=== PATIENT | male | born 1940 | race Caucasian/White ===

== ENCOUNTER 2016-10-23 21:42 | Emergency (ER) | payer MEDICARE, OTHER ==
[2016-10-23] MEDS ORDERED: Furosemide 40 MG/4 ML VIAL IVPUSH ONE (21:54)
--- NOTE | 2016-10-23 22:04 | EDM.PDOC ---
ED HPI GENERAL MEDICAL PROBLEM - General Chief Complaint: Respiratory Problem Stated Complaint: TYRON, [id number] Time Seen by Provider: 10/23/16 21:55 Source of Information: Reports: Patient History Limitations: Reports: No Limitations - History of Present Illness INITIAL COMMENTS - FREE TEXT/NARRATIVE: c/o SOB since yesterday. Hx CHF. Denies COPD though has an inhaler, Hasn't used until today. Hx Cardiac bypass surgery 2 years ago. Blood clot in left leg one year ago. xarelto stopped 2 months ago by business planning analyst, unsure why. No bleeding hx. Nonproductive cough . Non smoker. Traveled from [place] via car. No leg pain , Usual swelling to left leg. mild swelling to RLE. Duration: Day(s): (yesterday) Associated Symptoms: Reports: Shortness of Breath. Denies: Chest Pain, Cough ( ocassional), Fever/Chills, Nausea/Vomiting - Related Data Allergies Allergy/AdvReac Type Severity Reaction Status Date / Time Sulfa (Sulfonamide Allergy Hives Verified 10/23/16 21:51 Antibiotics) Home Meds: Home Meds Albuterol Sulfate [Ventolin Hfa] 8 gm IH ASDIRECTED 10/23/16 [History] Aspirin [Lon Chewable] 81 mg PO DAILY 10/23/16 [History] Atenolol 25 mg PO DAILY 10/23/16 [History] Cholecalciferol (Vitamin D3) [Vitamin D3] 1,000 unit PO DAILY 10/23/16 [History] Furosemide [Lasix] 20 mg PO DAILY 10/23/16 [History] Isosorbide Mononitrate [Isosorbide Mononitrate ER] 30 mg PO DAILY 10/23/16 [ History] Melatonin 5 mg PO ASDIRECTED 10/23/16 [History] Nitroglycerin [Nitrostat] 0.4 mg SL Q5M 10/23/16 [History] Potassium Gluconate 595 mg PO DAILY 10/23/16 [History] Tamsulosin [Flomax] 0.8 mg PO DAILY 10/23/16 [History] atorvaSTATin [Lipitor] 40 mg PO BEDTIME 10/23/16 [History] Past Medical History HEENT History: Reports: Hard of Hearing Cardiovascular History: Reports: Bypass, Heart Failure, High Cholesterol Respiratory History: Reports: None Gastrointestinal History: Reports: None Genitourinary History: Reports: None Musculoskeletal History: Reports: None Neurological History: Reports: None Psychiatric History: Reports: None Endocrine/Metabolic History: Reports: None Hematologic History: Reports: None Immunologic History: Reports: None Oncologic (Cancer) History: Reports: None Social & Family History - Tobacco Use Smoking Status *Q: Never Smoker - Recreational Drug Use Recreational Drug Use: No ED ROS GENERAL - Review of Systems Review Of Systems: See Below Constitutional: Reports: No Symptoms HEENT: Reports: No Symptoms, Hearing Loss Respiratory: Reports: Shortness of Breath, Cough. Denies: Pleuritic Chest Pain , Sputum Cardiovascular: Reports: Dyspnea on Exertion, Edema (greater left), Orthopnea. Denies: Chest Pain, Lightheadedness, Palpitations GI/Abdominal: Reports: No Symptoms Musculoskeletal: Reports: No Symptoms Skin: Reports: No Symptoms Neurological: Reports: No Symptoms ED EXAM, GENERAL - Physical Exam Exam: See Below Exam Limited By: No Limitations General Appearance: Alert, Mild Distress Eye Exam: Bilateral Eye: EOMI Ears: Normal External Exam, Normal TMs Nose: Normal Inspection Throat/Mouth: Normal Inspection Head: Atraumatic, Normocephalic Neck: Normal Inspection, Full Range of Motion Respiratory/Chest: Decreased Breath Sounds, Crackles (intermittent bases with deep breathing.). No: Wheezing Cardiovascular: Normal Peripheral Pulses, Regular Rate, Rhythm (ocassional PVC unifocal) GI/Abdominal: Normal Bowel Sounds, Soft, Non-Tender Extremities: Normal Range of Motion, Other (swelling left lower extremitiy. ). No: Barrera's Sign Skin Exam: Warm, Dry, Intact, Normal Color Course - Vital Signs Last Recorded V/S: Last Vital Signs Temp 97.1 F 10/23/16 23:48 Pulse 79 10/23/16 23:48 Resp 14 10/23/16 23:48 BP 125/64 10/23/16 23:48 Pulse Ox 97 10/23/16 23:48 - Orders/Labs/Meds Orders: Active Orders 24 hr Category Date Time Status EKG 12 Lead [EKG Documentation Completion] [RC] URGENT Care 10/23/16 21:52 Active RT Aerosol Therapy [RC] ASDIRECTED Care 10/23/16 22:21 Active Labs: Laboratory Tests 10/23/16 10/23/16 10/23/16 Range/Units 21:55 21:55 21:55 WBC 9.5 (5.0-10.0) 10^3/uL RBC 4.15 L (4.6-6.2) 10^6/uL Hgb 13.6 L (14.0-18.0) g/dL Hct 40.3 (40.0-54.0) % MCV 97.1 (80-100) fL MCH 32.8 (27.0-34.0) pg MCHC 33.7 (33.0-35.0) g/dL Plt Count 153 (150-450) 10^3/uL Neut % (Auto) 52.6 (42.2-75.2) % Lymph % (Auto) 36.2 (20.5-50.1) % Miner % (Auto) 10.1 H (2-8) % Eos % (Auto) 0.9 L (1.0-3.0) % Baso % (Auto) 0.2 (0.0-1.0) % PT 10.4 (9.0-12.0) SEC INR 1.0 (0.9-1.2) D-Dimer, Quantitative 2130 H (0-400) ng/mL Sodium 142 (135-145) mmol/L Potassium 3.9 (3.6-5.0) mmol/L Chloride 108 (101-111) mmol/L Carbon Dioxide 26.0 (21.0-31.0) mmol/L Anion Gap 11.9 BUN 14 (7-18) mg/dL Creatinine 1.0 (0.6-1.3) mg/dL Est Cr Clr Drug Dosing 55.83 mL/min Estimated GFR (MDRD) > 60 BUN/Creatinine Ratio 14.00 Glucose 126 H (74-105) mg/dL Lactic Acid (0.5-2.2) mmol/L Calcium 8.7 (8.4-10.2) mg/dl Total Bilirubin 0.5 (0.2-1.0) mg/dL AST 29 (10-42) IU/L ALT 27 (10-60) IU/L Alkaline Phosphatase 57 (42-121) IU/L CK-MB (CK-2) (0.4-4.7) ng/mL Troponin I < 0.02 (0.00-0.02) ng/ml B-Natriuretic Peptide 56 (0-100) pg/ml Total Protein 6.5 L (6.7-8.2) g/dl Albumin 3.5 (3.2-5.5) g/dl Globulin 3.0 Albumin/Globulin Ratio 1.17 10/23/16 10/23/16 Range/Units 21:55 22:50 WBC (5.0-10.0) 10^3/uL RBC (4.6-6.2) 10^6/uL Hgb (14.0-18.0) g/dL Hct (40.0-54.0) % MCV (80-100) fL MCH (27.0-34.0) pg MCHC (33.0-35.0) g/dL Plt Count (150-450) 10^3/uL Neut % (Auto) (42.2-75.2) % Lymph % (Auto) (20.5-50.1) % Miner % (Auto) (2-8) % Eos % (Auto) (1.0-3.0) % Baso % (Auto) (0.0-1.0) % PT (9.0-12.0) SEC INR (0.9-1.2) D-Dimer, Quantitative (0-400) ng/mL Sodium (135-145) mmol/L Potassium (3.6-5.0) mmol/L Chloride (101-111) mmol/L Carbon Dioxide (21.0-31.0) mmol/L Anion Gap BUN (7-18) mg/dL Creatinine (0.6-1.3) mg/dL Est Cr Clr Drug Dosing mL/min Estimated GFR (MDRD) BUN/Creatinine Ratio Glucose (74-105) mg/dL Lactic Acid 1.4 (0.5-2.2) mmol/L Calcium (8.4-10.2) mg/dl Total Bilirubin (0.2-1.0) mg/dL AST (10-42) IU/L ALT (10-60) IU/L Alkaline Phosphatase (42-121) IU/L CK-MB (CK-2) 3.60 (0.4-4.7) ng/mL Troponin I (0.00-0.02) ng/ml B-Natriuretic Peptide (0-100) pg/ml Total Protein (6.7-8.2) g/dl Albumin (3.2-5.5) g/dl Globulin Albumin/Globulin Ratio Meds: Medications Discontinued Medications Generic Name Dose Route Start Last Admin Trade Name Imani PRN Reason Stop Dose Admin Albuterol 2.5 mg 10/23/16 22:21 10/23/16 22:35 Proventil Neb Soln NEB 10/23/16 22:22 2.5 mg ONETIME ONE Administration Furosemide 40 mg 10/23/16 21:54 10/23/16 22:04 Lasix IVPUSH 10/23/16 21:55 40 mg NOW ONE Administration Iopamidol 100 ml 10/23/16 22:53 10/23/16 23:01 [id number] (76%) IVPUSH 10/23/16 22:54 73 ml ONETIME ONE Administration - Re-Assessments/Exams Free Text/Narrative Re-Assessment/Exam: 10/24/16 00:[address] Harinder Odell hospitalist, accepting of patient for further eval and management of dyspnea with elevated d-dimer, Prior hx DVT. Ultrasound unavailable at this facility and cannot rule out DVT here in patient with CAD, prior hx of DVT and recent long car travel. Not on current anticoagulant as stopped by PCP 2 months ago . Rationale unknown. Departure - Departure Time of Disposition: 00:13 Disposition: DC/Tfer to Acute Hospital 02 Condition: fair Clinical Impression: Elevated d-dimer, History of DVT (deep vein thrombosis) Dyspnea Qualifiers: Dyspnea type: shortness of breath Qualified Code(s): R06.02 - Shortness of breath CAD (coronary artery disease) Qualifiers: Coronary Disease-Associated Artery/Lesion type: bypass graft [place] vs. transplanted heart: [place] heart Associated angina: without angina Qualified Code(s): I25.810 - Atherosclerosis of coronary artery bypass graft(s) without angina pectoris - Discharge Information Referrals: PCP,None [Primary Care Provider] - Forms: ED Department Discharge - My Orders Last 24 Hours: My Active Orders 10/23/16 21:52 EKG 12 Lead [EKG Documentation Completion] [RC] URGENT 10/23/16 22:21 RT Aerosol Therapy [RC] ASDIRECTED - Assessment/Plan Last 24 Hours: My Active Orders 10/23/16 21:52 EKG 12 Lead [EKG Documentation Completion] [RC] URGENT 10/23/16 22:21 RT Aerosol Therapy [RC] ASDIRECTED
[2016-10-23] MEDS ORDERED: Albuterol 0.083% 2.5 MG/3 ML Neb Soln NEB ONE (22:21)
[2016-10-23 22:22] LABS: CHLORIDE,CL 108 mmol/L (101-111); SODIUM,NA 142 mmol/L (135-145)
[2016-10-23] MEDS ORDERED: Iopamidol 755 Mg/ML 100 ML Bottle IVPUSH ONE (22:53)
[2016-10-23 23:49] VITALS: BP 125/64
--- NOTE | 2016-10-25 12:12 | EKG ---
10/23/2016 - VIRI MOYER - Twelve-lead EKG shows normal sinus rhythm with multiple ventricular premature complexes. Unifocal, no significant ST elevation or ST depression noted on this 12-lead EKG. [facility] /[id number]
== END 2016-10-24 00:15 ==
LOC: DL.ED 21:42
DX: R06.02 Shortness of breath (principal); R79.1 Abnormal coagulation profile; I25.810 Atherosclerosis of coronary artery bypass graft(s) without angina pectoris; I50.9 Heart failure, unspecified; R79.89 Other specified abnormal findings of blood chemistry; E78.00 Pure hypercholesterolemia, unspecified; Z86.718 Personal history of other venous thrombosis and embolism; Z88.2 Allergy status to sulfonamides; Z79.82 Long term (current) use of aspirin; Z79.899 Other long term (current) drug therapy
CPT/HCPCS: 36415; 71010; 71260; 80053; 82553; 83605; 83880; 84484; 85025; 85379; 85610; 93005; 93010; 96374; 99285; J1940; J7620; Q9967; 99284